=== PATIENT | male | born 1940 | race Caucasian/White ===

== ENCOUNTER → 2016-11-05 | Outpatient (CLI) | payer OTHER, MEDICARE ==
[~2016-11-05] MED LIST: ALBUTEROL2.5 MG/31 INH; ALL DAY ALLERGY10 M2; AMBIEN5 MG PO; ASMANEX TWIST220 MC1; ASMANEX220 MC2 INH; ASPIRIN325 MG PO; ATIVAN 1 MG1 MG PO; BIPAP INH; BREO ELLIPTA 11 EACH INH; CARDIZEM SR120 MG PO; COREG25 MG PO; DELTASONE2.5 MG PO; DOXYCYCLINE100 MG PO; FLOMAX0.4 MG PO; FLONASE 50 MCG/16 GM NOSE; K-TAB ER20 MEQ PO; LASIX40 MG PO; LODINE400 MG PO; NEURONTIN300 MG PO; NORCO 5-325 TA1 EACH PO; OXYGEN M-15 INH; PRADAXA150 MG PO; PRAVACHOL80 MG PO; PRILOSEC20 MG PO; PRINIVIL OR ZES10 MG PO; PROSCAR5 MG PO; SIMVASTATIN80 MG PO; SPIRIVA HANDIHA1 KIT INH; SPIRIVA18 MCG INH; STOOL SOFTENER100 M1 PO; SYMBICORT 16010.2 GM INH; TERAZOSIN HCL10 MG PO; TYLENOL325 MG PO; ULTRAM50 MG PO; VITAMIN C1000 M2 PO; VITAMIN D1000 UNIT PO; ZYRTEC10 MG PO
[2016-11-05 17:00] LABS: BASOPHIL % 0.4 %; EOSINOPHIL # 0.1 K/uL (0.0-0.5); HEMATOCRIT 35.7 % (37.0-53.0); HEMOGLOBIN 11.2 g/dL (11.0-16.0); IMMATURE GRANULOCYTE # 0.1 K/uL (0.0-0.3); IMMATURE GRANULOCYTE % 1.3 %; LYMPHOCYTE # 1.4 K/uL (0.8-4.0); LYMPHOCYTE % 19.9 %; MCH 29.9 pg (27.0-34.0); MCHC 31.4 gm/dL (32.0-36.5); MCV 95.5 fl (83.0-98.0); MONOCYTE % 14.4 %; MPV 11.7 fl (9.4-12.4); NEUTROPHIL # (ANC) 4.4 K/uL (1.4-9.0); NRBC % 0 /100WBC (0-0.00); PLATELET COUNT 166 K/uL (150-450); RDW-CV 13.2 % (11.9-14.6); WBC 7.1 K/uL (4.0-11.0)
[2016-11-05 17:02] LABS: RBC 3.74 M/uL (3.50-5.50)
[2016-11-05 17:23] LABS: ALBUMIN 3.4 gm/dL (3.5-5.0); ALK PHOS 65 IU/L (33-138); ALT 22 IU/L (12-78); ANION GAP 10.5 (10.0-19.0); AST 16 IU/L (10-40); BLOOD UREA NITROGEN 18 mg/dL (6-24); CALCIUM 8.2 mg/dL (8.5-10.5); CHLORIDE 103 mMol/L (96-110); CO2 29 mMol/L (22-32); ESTIMATED GFR (MDRD EQUATION) > 60; POTASSIUM 4.5 mMol/L (3.7-5.1); SODIUM 138 mMol/L (135-145); TOTAL BILIRUBIN 0.4 mg/dL (0.0-1.5)
== END | disposition disaster alternative care site (69) ==
LOC: LNHI 16:50
PROVIDERS: Surgery Vascular Surgery
DX: I73.9 Peripheral vascular disease, unspecified (principal); I48.0 Paroxysmal atrial fibrillation; I70.213 Atherosclerosis of native arteries of extremities with intermittent claudication, bilateral legs

== ENCOUNTER 2016-11-13 09:14 | Outpatient (CLI) | payer OTHER, MEDICARE ==
[~2016-11-13] VITALS: Ht 175.3 cm; Wt 90.7 kg
--- NOTE | ~2016-11-13 | OR ---
PATIENT'S NAME: BING ESCALERA [facility] AGE: 76 Y [address] ROOM: [address] [address] LOCATION: GPCU ADMIT DATE: 11/13/2016 OR/Procedure Report DISCHARGE DATE: FAMILY PHYSICIAN: Nickolas Wen MD ATTENDING PHYSICIAN: CHAPIN CROWE SURGEON: Chapin Crowe MD PLANT AND MACHINERY VALUER: DATE OF PROCEDURE: 11/13/2016 PREOPERATIVE DIAGNOSIS: Critical limb ischemia of the right lower extremity with rest pain. POSTOPERATIVE DIAGNOSIS: Critical limb ischemia of the right lower extremity with rest pain. PROCEDURE: 1. Aortogram with right lower extremity angiogram. 2. SFA angioplasty and stenting. RELISH BLENDER: Dr. Casi Tang. ANESTHESIA: MAC local. ESTIMATED BLOOD LOSS: 25 mL. 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 He had an occlusion of the SFA with heavily calcified lesion, which was recanalized and then stented open with a covered stent. DESCRIPTION OF PROCEDURE: The patient was brought to the forestry farm laborer, placed supine on the forestry farm laborer table, and prepped and draped in a sterile manner. Preoperative time-out was performed. The patient received preoperative antibiotics. We used ultrasound guidance to gain access to the common femoral artery on the left. Using micropuncture needle, followed by micropuncture wire, followed by micropuncture sheath, we infiltrated the skin with 1% lidocaine for pain relief. We then exchanged using Seldinger technique for a 5-Armenian short sheath. We went up in the aorta using 0.035 Glidewire as well as Omni Flush catheter. We performed an aortogram which showed patent common, external, and internal iliac arteries. There was a moderate to high-grade stenosis of the takeoff of the common iliac on the right which would require a stent at a later date. We were unable to do so today because of the location of our access point. We went up and over the aortic bifurcation, parked our catheter in the common femoral on the right, and performed a series of angiograms. The common femoral was patent. There appeared to be occlusion of PATIENT'S NAME: BING ESCALERA [facility] AGE: 76 Y [address] ROOM: [address] [address] [facility] ADMIT DATE: 11/13/2016 OR/Procedure Report DISCHARGE DATE: FAMILY PHYSICIAN: Nickolas Wen MD ATTENDING PHYSICIAN: CHAPIN CROWE the proximal profunda artery with reconstitution via collaterals. The SFA was patent proximally, but then occluded in the mid thigh, and then recanalized distally via collaterals to the popliteal artery. There was then two-vessel runoff to the foot. We were able to cross the lesion using a 0.035 Glidewire as well as a TrailBlazer catheter. Once this was done, we exchanged using Seldinger technique for a Magic Torque wire. This would be our working wire for the entire case. We then exchanged the 5-Armenian sheath for a 7-Armenian Destination sheath. We then gave 5000 units of heparin. We angioplastied the lesion first with a 4 mm balloon, then a 5 mm balloon, and then ultimately we used a 6 x 200 balloon and then placed a 6 x 100 Viabahn stent across the heavily calcified lesion to relieve the occlusion. There was an excellent flow into the foot. We will need to bring him back at a later date to gain antegrade access via the right and place a stent in the common iliac on the right, it was to place a stent at this time. We removed the sheath, held pressure for 15 minutes. The patient tolerated the procedure well. There was no hematoma formation. The patient was transferred to the recovery room and allowed home later that day. CHAPIN CROWE MD FKM/modl /[id number] d: 11/13/16 2259 t: 11/21/16 1628, OPERATIVE SUMMARY
== END 2016-11-13 18:54 | disposition disaster alternative care site (69) ==
LOC: GCAT 09:14 → GPCU 09:14 → GPOC 09:30 → GCAT 18:54
PROC: B40DYZZ Plain Radiography of Aorta and Bilateral Lower Extremity Arteries using Other Contrast (ICD-10-PCS; principal; 2016-11-13)
DX: I99.8 Other disorder of circulatory system (principal)
CPT/HCPCS: C1725; C1769; C1874; C1887; J1644; J2001; J2250; J2720; J3010; J7030